=== PATIENT | female | born 1945 | race Caucasian/White ===

== ENCOUNTER → 2017-09-21 18:20 | Outpatient (CLI) | payer OTHER | END | disposition home or self-care (01) | LOC: D.MAMMO 09:30 | DX: Z12.31 Encounter for screening mammogram for malignant neoplasm of breast (principal) ==

== ENCOUNTER → 2018-04-25 09:38 | Outpatient (CLI) | payer OTHER | END | disposition home or self-care (01) | LOC: D.HCCARDIO 09:38 | PROVIDERS: ATTEND Internal Medicine Cardiovascular Disease | DX: R00.2 Palpitations (principal) ==

== ENCOUNTER → 2019-06-27 10:16 | Outpatient (CLI) | payer OTHER | END | disposition home or self-care (01) | LOC: D.HCCECHO 10:16 | PROVIDERS: ATTEND Internal Medicine Cardiovascular Disease | DX: I07.1 Rheumatic tricuspid insufficiency (principal); I34.0 Nonrheumatic mitral (valve) insufficiency; I10 Essential (primary) hypertension; I48.91 Unspecified atrial fibrillation ==

== ENCOUNTER → 2019-08-08 10:01 | Outpatient (CLI) | payer OTHER | END | disposition home or self-care (01) | LOC: D.HCCARDIO 10:01 | PROVIDERS: ATTEND Internal Medicine Cardiovascular Disease | DX: I20.9 Angina pectoris, unspecified (principal) ==

== ENCOUNTER 2019-08-20 06:22 | Outpatient (CLI) | payer OTHER ==
[~2019-08-20] VITALS: Ht 177.8 cm; Wt 77.8 kg
--- NOTE | ~2019-08-20 | HEMODYNAMI ---
PATIENT:SYLVIA PALACIOS MEDICAL RECORD: [id number] : 49 LOCATION:[facility] ADMISSION DATE: 08/20/19 Generatedon:08/20/20198:24 Patient name: SYLVIA PALACIOS Patient #: [id number] N: [id number] : 1945 Date of study: 08/20/2019 Page: Of Hemodynamic Procedure Report Patient Data Patient Demographics Procedure consent was obtained First Name: SYLVIA Gender: Female Last Name: PHILIP : 1945 Patient #: [id number] Age: 74 year(s) Race: SSN: [id number] Additional ID: [id number] Contact details [address]: [address] [place] [address] ln State: [place] City: [place] Zip code: [address] Past Medical History Performed procedures and imaging results Date Procedure Procedure Results Comments 08/08/2019 Stress testing Positive->Intermediate with SPECT MPI risk Admission Admission Data Admission Date: 08/20/2019 Admission Time: 6:22 Arrival Date: 08/20/2019 Arrival Time: 8:00 Admit Source: Other Insurance Payor: Private health insurance [facility] #: [id number] Height (in.): 69.69 BSA: 1.94 (m2) Height (cm.): 177 BMI: 24.58 (kg/m2) Weight (lbs.): 169.76 Weight (kg.): 77 Lab Results Lab Result Date: 08/20/2019 Lab Result Time: 0:00 Biochemistry Name Units Result Min Max BUN mg/dl 17 --(---*)-- 7 18 Creatinine mg/dl 0.9 --(-*--)-- 0.6 1.3 eGFR ml/min 64.49077 *-(----)-- 90 120 NONAFRICAN CBC Name Units Result Min Max Hematocrit % 37.8 *-(----)-- 42 54 Hemoglobin g/dl 12.3 *-(----)-- 13.5 17.5 Procedure Procedure Types Cath Procedure Diagnostic Procedure C [facility] w/Coronaries Sedation Charges Moderate Sedation up to 15 minutes Procedure Description Procedure Date Procedure Date: 08/20/2019 Procedure Start Time: 8:07 Procedure End Time: 8:21 Procedure Staff Name Function Chaya Curtisen RT Monitor Marcela Riddle RN Nurse Acosta Easton MD Performing Physician Keturah Chong RT Scrub Procedure Data Cath Procedure Fluoroscopy Diagnostic fluoroscopy Total fluoroscopy Time: 2.6 time: 2.6 min min Diagnostic fluoroscopy Total fluoroscopy dose: 143 dose: 143 mGy mGy Contrast Material Contrast Material Type Amount (ml) Isovue 300 48 Entry Location Entry Primary Successful Side Size Upsize Upsize Entry Closure [place] ccessful Closure Location (Fr) 1 (Fr) 2 (Fr) Remarks Device Remarks Radial Right 6 Fr Mechanical artery Short Compression Estimated blood loss: 5 ml Diagnostic catheters Device Type Used For End Catheter Placement DIAGNOSTIC [place] 110cm 5 Multi-vessel Fr catheter ([id number]) Angiography DIAGNOSTIC AR1 MOD 5Fr Right Coronary catheter ([id number]) Angiography Procedure Complications No complications Procedure Medications Medication Administration Route Dosage Oxygen etCO2 Nasal cannula 2 l/min Lidocaine 2% added to field 20 Heparin Flush Bag added to field 2 bags (1000units/500ml NS) 0.9% NaCl I.V. 100 ml/hr Versed I.V. 1 mg Fentanyl I.V. 50 mcg Radial Cocktail I.A. 1 syringe (Verapamil 2mg/Nitro 400mcg/Heparin 1500units) Versed I.V. 1 mg Fentanyl I.V. 50 mcg Hemodynamics Rest BSA: 1.94 (m2) HGB: 12.3 (g/dl) O2 Consumption: Estimated: 160.21 (ml/min) O2 Co nsumption indexed: Estimated:82.58 (ml/min/m) Heart Rate: 46 (bpm) Pressure Samples Time Site Value (mmHg) Purpose Heart Use Rate(bpm) 8:12 LV 107/5,11 Snapshot 46 Gradients Valve Time Site Site Mean SEP/DFP Peak To Heart Use 1 2 (mmHg) (sec/min) Peak Rate (mmHg) (bpm) Aortic 8:13 LV AO 45 Snapshots Pre Cath Intra NCS Post Cath Vital Signs Time Heart Resp SPO2 etCO2 NIBP (mmHg) Rhythm Pain Sedation Rate (ipm) (%) (mmHg) Status Level (bpm) 7:53:08 48 14 96 0 166/97(146) SB (Missing) 10(A) 7:57:26 46 23 98 0 168/93(144) SB (Missing) 10(A) 8:01:46 47 11 98 35.9 153/83(128) SB (Missing) 10(A) 8:06:06 44 12 95 38.9 118/70(82) SB (Missing) 10(A) 8:10:14 43 13 96 39.6 119/66(97) SB (Missing) 9(A) 8:14:28 43 15 93 20.2 95/54(78) SB (Missing) 9(A) 8:18:30 44 15 94 29.9 104/61(77) SB (Missing) 10(A) Medications Time Medication Route Dose Verified Delivered Reason Notes Effectiveness by by 8:02:03 Oxygen etCO2 2 l/min Acosta Buffie used for Nasal Rustam Riddle RN procedure cannula 8:02:10 Lidocaine 2% added 20ml Acosta Acosta for local to vial Rustam Easton MD anesthetic field 8:02:18 Heparin Flush added 2 bags Acosta Acosta used for Bag to Rustam Easton MD procedure (1000units/500ml field NS) 8:02:29 0.9% NaCl I.V. 100 Acosta Buffie Per ml/hr Rustam Riddle RN physician 8:03:52 Versed I.V. 1 mg Acosta Buffie for sedation Rustam Riddle RN 8:03:58 Fentanyl I.V. 50 mcg Acosta Buffie for sedation Rustam Riddle RN 8:10:24 Radial Cocktail I.A. 1 Acosta Acosta for (Verapamil syringe Rustam Easton MD vasodilation 2mg/Nitro 400mcg/Hepari 8:10:28 Versed I.V. 1 mg Acosta Buffie for sedation Rustam Riddle RN 8:10:33 Fentanyl I.V. 50 mcg Acosta Buffie for sedation Rustam Riddle RN Procedure Log Time Note 7:12:07 Diagnostic Cath Status : Elective 7:15:16 Admit Source: Other 7:15:23 ACC Patient presents with Stable Angina CCS Anginal Class 2--Slight limitation of ordinary activity. 7:15:28 Procedure Status Elective Heart Cath (OP). 7:15:30 Time tracking: Regular hours (M-F 7:00 - 5:00) 7:15:34 Plan of Care:Hemodynamics will remain stable., Cardiac rhythm will remain stable., Comfort level will be maintained., Respiratory function will remain adequate., Patient/ family verbilizes understanding of procedure., Procedure tolerated without complication., Recovers from procedure without complications.. 7:15:46 H&P Date Dictated: 07/24/2019 Within 30 days and on chart.. 7:16:04 Stress Test: yes; abnormal inferior and apical 7:16:24 Sharps counted by scrub and verified by R.N. 7:16:24 Alarms reviewed by R. N. 7:28:36 Lab Result : Hematocrit 37.8 % 7:28:36 Lab Result : Hemoglobin 12.3 g/dl 7:35:54 Lab Result : eGFR NONAFRICAN 64.18369 ml/min 7:35:54 Lab Result : Creatinine 0.9 mg/dl 7:35:54 Lab Result : BUN 17 mg/dl 7:37:49 Risk of Mortality: 0.1 7:37:52 Risk of blood transfusion: 0.1 7:37:54 Risk of DRAKE: 1.2 7:41:24 Keturah Chong RT(R) sent for patient. Start room use. 7:45:37 Patient received from Pre/Post Procedure Room to CCL 3 Alert and oriented. Tansferred to table in Supine position. 7:45:40 Signed procedure consent form obtained from patient. 7:45:41 ECG and BP/O2 sat monitors applied to patient. 7:45:41 Correct patient and procedure confirmed by team. 7:45:41 Warm blankets applied, and sandra hugger turned on for patient comfort. 7:48:35 Vital chart was started 7:48:36 Baseline sample Acquired. 7:49:26 Arrival Date: 08/20/2019 8:00:00 AM 7:49:45 Insurance Payor : Private health insurance 7:49:47 Patient Height : 69.69 inches 7:49:50 Patient Weight : 169.76 lbs 7:50:38 Pre-op teaching completed and patient verbalized understanding. 7:50:38 Pre-procedure instructions explained to patient. 7:50:40 Family in patients room. 7:50:41 Patient NPO since Midnight. 7:50:48 Is the patient allergic to Iodine/contrast media? No. 7:50:49 Was the patient premedicated? Yes 7:53:41 Is patient on blood thinner?No 7:55:24 patient states has not had her xarelto in two weeks 7:55:26 Patient diabetic? No. 7:55:29 Previous problem with sedation/anesthesia? No ? 7:55:31 Snore? No 7:55:32 Sleep apnea? No 7:55:33 Deviated septum? No 7:55:34 Opens mouth fully? Yes 7:55:35 Sticks out tongue? Yes 7:55:36 Airway obstruction? No ? 7:55:39 Dentures? No ? 7:55:43 Pre procedure: right dorsailis pedis pulse 2+ Normal; easily identifiable; not easily obliterated 7:55:45 Pre procedure: left dorsailis pedis pulse 2+ Normal; easily identifiable; not easily obliterated 7:55:47 Patient pain scale 0/10 ?. 7:55:53 IV patent on arrival in left forearm with 0.9% NaCl at O. 7:56:05 Lab results completed and on chart. 7:56:16 --------ALL STOP TIME OUT------ 7:56:16 Physician arrived 7:56:17 Final Timeout: patient, procedure, and site verified with staff and physician. All members of the team are in agreement. 7:56:22 Right Radial & Right Groin site verified by team. 7:56:26 Fire Safety Assessment: A--An alcohol-based skin anteseptic being used preoperatively., C--Open oxygen or nitrous oxide is being used., D--An ESU, laser, or fiber-optic light is being used. 7:56:28 Physical assessment completed. ASA score P 2 - A patient with mild systemic disease as per Acosta Easton MD. 7:56:43 2) 60-89 Mildly reduced kidney function, and other findings (as for stage 1) point to kidney disease. 7:57:07 Maximum allowable contrast dose (3.7 X eGFR X 0.75)180 ml. 7:57:12 Sedation plan: IV Moderate Sedation Medication:Versed, Fentanyl 7:57:18 Use device set Radial Dx or PCI 7:57:19 ACIST Syringe (71370) opened to sterile field. 7:57:20 ACIST Hand Control (84980) opened to sterile field. 7:57:20 Bag Decanter (2002S) opened to sterile field. 7:57:20 Medline Cath Pack ([id number]) opened to sterile field. 7:57:21 Tegaderm 4 x 4 (1626W) opened to sterile field. 7:57:21 ACIST Manifold (17333) opened to sterile field. 7:57:22 MBrace Wrist Support ([id number]) opened to sterile field. 7:57:23 NEEDLE Cook 21G 4cm Radial (F21513) opened to sterile field. 7:57:24 SHEATH 6FR RAIN (5636573) opened to sterile field. 7:57:25 EMERALD Guide Wire (442-979) opened to sterile field. 8:01:21 Baseline sample Acquired. 8:01:28 Rhythm: sinus bradycardia 8:02:03 Oxygen 2 l/min etCO2 Nasal cannula was administered by Marcela Riddle RN; used for procedure; Verbal order read back and verified. 8:02:10 Lidocaine 2% 20ml vial added to field was administered by Acosta Easton MD; for local anesthetic; Verbal order read back and verified. 8:02:18 Heparin Flush Bag (1000units/500ml NS) 2 bags added to field was administered by Acosta Easton MD; used for procedure; Verbal order read back and verified. 8:02:29 0.9% NaCl 100 ml/hr I.V. was administered by Marcela Riddle RN; Per physician; Verbal order read back and verified. 8:03:52 Versed 1 mg I.V. was administered by Marcela Riddle RN; for sedation; Verbal order read back and verified. 8:03:58 Fentanyl 50 mcg I.V. was administered by Marcela Riddle RN; for sedation; Verbal order read back and verified. 8:04:48 Full Disclosure recording started 8:04:48 Procedure started. 8:07:15 Local anesthetic to right radial artery with Lidocaine 2% by Acosta Easton MD.INITIAL ACCESS ONLY 8:09:46 A 6 Fr Short sheath was inserted into the Right Radial artery 8:10:21 A DIAGNOSTIC [place] 110cm 5 Fr catheter ([id number]) was advanced over the wire and used for Multi-vessel Angiography. 8:10:24 Radial Cocktail (Verapamil 2mg/Nitro 400mcg/Heparin 1500units) 1 syringe I.A. was administered by Acosta Easton MD; for vasodilation; Verbal order read back and verified. 8:10:28 Versed 1 mg I.V. was administered by Marcela Riddle RN; for sedation; Verbal order read back and verified. 8:10:33 Fentanyl 50 mcg I.V. was administered by Marcela Riddle RN; for sedation; Verbal order read back and verified. 8:12:23 LV hemodynamics recorded. 8:12:24 LV gram done using BLACKMAN 8:12:27 Injector settings: Ml/sec: 5, Volume: 15, 8:12:50 EF : 50 % 8:13:41 LCA angiography performed. 8:13:44 Injector settings: Ml/sec: 3, Volume: 6, 8:16:02 A DIAGNOSTIC AR1 MOD 5Fr catheter ([id number]) was advanced over the wire and used for Right Coronary Angiography. 8:18:30 RCA angiography performed. 8:18:32 Injector settings: Ml/sec: 3, Volume: 6, 8:19:14 Catheter removed. 8:19:17 ZEPHYR REGULAR TR BAND (377451) opened to sterile field. 8:19:28 Sheath removed intact; hemostasis achieved with Mechanical Compression to the Right Radial artery. 8:19:29 [place] band inflated with 12cc of air. 8:19:40 Procedure ended.(Physican Out) 8:20:09 Fluoroscopy time 02.60 minutes. 8:20:14 Fluoroscopy dose: 143 mGy 8:20:14 Flurop Dose total: 143 8:20:33 Dose Area Product 938.31 mGy/cm. 8:20:36 Contrast amount:Isovue 300 48ml. 8:20:38 Maximum allowable dose exceeded? No. 8:20:39 Sharps counted by scrub and verified by R.N. 8:20:42 Insertion/operative site no bleeding no hematoma. 8:20:45 Post right radial artery:stable 8:20:47 Post Procedure Pulses reassessed and unchanged 8:20:50 Post procedure rhythm: unchanged. 8:20:53 Estimated blood loss: 5 ml 8:20:55 Patient needs reinforcement of post procedure teaching. 8:20:55 Post procedure instruction explained to patient.Patient verbalizes understanding. 8:21:05 Procedure type changed to Cath procedure, Diagnostic procedure, LHC, [facility] w/Coronaries, Sedation Charges, Moderate Sedation up to 15 minutes 8:21:25 Procedure and supply charges have been captured, reviewed, submitted and are correct. 8:21:29 Procedure Complication : No complications 8:21:32 Vital chart was stopped 8:21:36 [facility] Findings: mild to moderate CAD (<70%) 8:21:38 See physician's report for complete and final results. 8:21:38 Operative report dictated upon procedure completion. 8:21:42 Report given to Pre/Post Procedure Room. 8:21:47 Patient transfered to Pre/Post Procedure Room with Stretcher. 8:21:50 Full Disclosure recording stopped 8:21:50 Procedure ended. 8:21:54 End room use (Document Last) 8:22:28 End room use (Document Last) 8:23:02 End room use (Document Last) Device Usage Item Name Manufacture Quantity Catalog Hospital Part Current Minima l Lot# / Number Charge Number Stock Stock Serial# Code ACIST Acist 1 69552 072553 554152 012345 20 Syringe Medical (66848) Systems Inc Medline Medline 1 [id number] 557600 69484 514471 5 Cath Pack ([id number]) Bag Microtek 1 2001S 786410 07951 717496 5 Decanter Medical Inc. () ACIST Hand Acist 1 84991 859633 364119 167888 5 Control Medical (28937) Systems Inc ACIST Acist 1 54062 549956 610122 479612 5 Manifold Medical (44613) Systems Inc Tegaderm 4 3M 1 1626W 303352 141998 973289 5 x 4 (1626W) MBrace Advanced 1 140-0250-00 045624 36586 288927 5 Wrist Vascular Support Dynamics ([id number]) NEEDLE Cook Cook Medical 1 I94515 911274 987761 914696 5 21G 4cm Radial (F66386) SHEATH 6FR Cardinal 1 7266378 607375 9819490 949583 5 [facility] (4206595) EMERALD Cardinal 1 961-455 683548 864799 537761 5 Guide [facility] (793-796) DIAGNOSTIC Terumo 1 47-2009 643916 853124 821727 5 [place] 110cm 5 Fr catheter (288942) DIAGNOSTIC Cardinal 1 [id number] 156405 169385 425869 15 AR1 MOD 5Fr Health catheter (002964M) ZEPHYR Cardinal 1 236306 327985 2418928 439358 5 REGULAR TR Health BAND (166119) Signature Audit [place] Stage Time Signature Unsigned Intra-Procedure 08/20/2019 Chaya Fair 8:22:28 AM RT(R) Intra-Procedure 08/20/2019 Marcela Riddle RN 8:23:02 AM Intra-Procedure 08/20/2019 Acosta Easton MD 8:24:32 AM [place] [id number] [place] [id number]
[2019-08-20] MEDS ORDERED: BETAPACE 80 MG80 MG PO (06:49)
[2019-08-20] MEDS ORDERED: DILTIAZEM 24HR120 M3 PO (06:50)
[2019-08-20 07:08] VITALS: BP 168/89; Ht 177.8 cm; Wt 77.8 kg
[2019-08-20 07:13] LABS: BASOPHILS 0.6 % (0-2); EOSINOPHILS 1.8 % (0-7); HEMATOCRIT 37.8 % (36.0-48.0); HEMOGLOBIN 12.3 g/dL (12-16); LYMPHOCYTES 31.9 % (15-50); MCH 30.5 pg (26.0-34.0); MCHC 32.5 g/dL (31.0-37.0); MCV 93.8 fL (80.0-100.0); MEAN PLATELET VOLUME 9.5 fL (7.4-10.4); MONOCYTES 8.4 % (2-11); NEUTROPHILS 57.3 % (40-80); PLATELET COUNT 240 10x3/uL (130-400); RBC 4.03 10x6/uL (4.00-5.40); RDW 12.7 % (11.5-14.5); WBC 5.5 10x3/uL (4.8-10.8)
[2019-08-20 07:29] LABS: ANION GAP 12.3 mmol/L (8-16); CALCIUM 8.8 mg/dL (8.5-10.1); CARBON DIOXIDE 26.2 mmol/L (21.0-32.0); CHOL - HDL RATIO 3.2 ratio (2.3-4.1); CREATININE - SERUM 0.9 mg/dL (0.6-1.3); POTASSIUM - SERUM 4.5 mmol/L (3.5-5.1)
--- NOTE | 2019-08-20 08:35 | NUR ---
PT REC'D TO ROOM 12 VIA STRETCHER FROM PLATING INSPECTOR. MONITORS ESTAB. AT BS. SEE SENIOR QUALITY CONTROL INSPECTOR. ALARMS ON AND C/L IN REACH.
--- NOTE | 2019-08-20 08:50 | NUR ---
R WRIST SITE C/D/I, NO S/S BLEEDING OR SWELLING. PULSES PALP. VSS. AT BS. ALARMS ON AND C/L IN REACH.
--- NOTE | 2019-08-20 09:20 | NUR ---
R WRIST SITE C/D/I, NO S/S BLEEDING OR SWELLING. HAND WARM, PULSES PALP. ALARMS ON AND C/L IN REACH.
--- NOTE | 2019-08-20 09:35 | NUR ---
R WRIST SITE C/D/I, 2 CC AIR REMOVED, NO S/S BLEEDING - WILL CONT CLOSE MONITORING. VSS. PT DENIES NEEDS. C/L IN REACH.
--- NOTE | 2019-08-20 09:50 | NUR ---
TOTAL 5 CC AIR REMOVED FROM Z BAND, NO S/S BLEEDING OR SWELLING.
--- NOTE | 2019-08-20 10:15 | NUR ---
TOTAL 7CC AIR REMOVED FROM Z BAND, NO S/S BLEEDING OR SWELLING. PT SITTING UP IN BED. EATING CRACKERS, WATER PROVIDED. AT BS.
--- NOTE | 2019-08-20 10:30 | NUR ---
ALL AIR REMOVED FROM Z BAND, NO S/S BLEEDING OR HEMATOMA. VSS. C/L IN REACH.
--- NOTE | 2019-08-20 10:45 | NUR ---
R WRIST SITE C/D/I, NO S/S BLEEDING. PIV D/C'D INTACT AND PT ALLOWED UP TO GET DRESSED AND GO TO BR INDEPENDENTLY.
--- NOTE | 2019-08-20 11:02 | NUR ---
ALL DISCHARGE INSTRUCTIONS REVIEWED WITH PT AND HER . UNDERSTANDING VERBALIZED. Z BAND OFF AND DSG APPLIED, ARM BOARD IN PLACE.
--- NOTE | 2019-08-20 11:05 | NUR ---
PT D/C'D VIA WC TO PRIVATE VEHICLE WITH ALL PAPER WORK AND BELONGINGS.
== END 2019-08-20 11:05 | disposition home or self-care (01) ==
LOC: D.CATH 06:22
PROVIDERS: ATTEND Internal Medicine Cardiovascular Disease
DX: I20.9 Angina pectoris, unspecified (principal); I48.91 Unspecified atrial fibrillation; I10 Essential (primary) hypertension; R00.2 Palpitations; R06.09 Other forms of dyspnea

== ENCOUNTER 2020-06-16 10:29 | Inpatient (IN) | payer OTHER ==
[~2020-06-16] VITALS: Ht 177.8 cm; Wt 77.3 kg
[~2020-06-16 10:29] MED LIST: BETAPACE 80 MG80 MG PO; DILTIAZEM 24HR120 M3 PO
[2020-06-16] MEDS ORDERED: XARELTO10 MG PO (10:38)
[2020-06-16 11:11] LABS: CALC OSMOLALITY 273 mosm/kg (275-300); CALCIUM 9.1 mg/dL (8.5-10.1); CARBON DIOXIDE 26.4 mmol/L (21.0-32.0); CHLORIDE - SERUM 103 mmol/L (98-107); CREATININE - SERUM 0.7 mg/dL (0.6-1.3); GLUCOSE 89 mg/dL (74-106); POTASSIUM - SERUM 4.3 mmol/L (3.5-5.1); SODIUM 137 mmol/L (136-145); UREA NITROGEN 14 mg/dL (7-18); eGFR NON AFRICAN AMERICAN 87 mL/min (90-120)
[2020-06-16 11:26] LABS: ALBUMIN 3.9 g/dL (3.4-5.0); ALKALINE PHOSPHATASE 71 U/L (30-120); ALT (SGPT) 17 U/L (10-68); BILIRUBIN - TOTAL 0.36 mg/dL (0.2-1.3); CREATINE KINASE 50 UL (21-215); PROTEIN - SERUM 7.2 g/dL (6.4-8.2)
[2020-06-16 11:27] LABS: TROPONIN-I < 0.017 ng/mL (0.000-0.060)
[2020-06-16 11:33] LABS: APTT 28.7 SECONDS (22.8-39.4); INR 1.23 (0.85-1.17); PROTIME 14.3 SECONDS (11.6-15.0)
[2020-06-16 11:57] LABS: BASOPHILS 0.5 % (0-2); EOSINOPHILS 1.6 % (0-7); HEMATOCRIT 32.3 % (36.0-48.0); HEMOGLOBIN 10.4 g/dL (12-16); LYMPHOCYTE ABS# 1.61 10x3/uL (1.18-3.74); LYMPHOCYTES 36.3 % (15-50); MCH 29.3 pg (26.0-34.0); MCHC 32.2 g/dL (31.0-37.0); MEAN PLATELET VOLUME 9.6 fL (7.4-10.4); MONOCYTES 9.7 % (2-11); NEUTROPHIL ABS# 2.31 10x3/uL (1.56-6.13); NEUTROPHILS 51.9 % (40-80); PLATELET COUNT 250 10x3/uL (130-400); RBC 3.55 10x6/uL (4.00-5.40); RDW 13.6 % (11.5-14.5); WBC 4.4 10x3/uL (4.8-10.8)
[2020-06-16 13:49] VITALS: BP 184/91
--- NOTE | 2020-06-16 14:42 | NUR ---
ARRIVED TO FLOOR. ALERT AND ORIENTED.
[2020-06-16] MEDS ORDERED: BENADRYL25 MG PO (14:45)
[2020-06-16 14:50] VITALS: BP 180/79; Ht 177.8 cm; Wt 77.3 kg
[2020-06-16 16:00] VITALS: BP 163/85
--- NOTE | 2020-06-16 17:35 | NUR ---
RESTING IN BED. DENIES ANY NEEDS AT THIS TIME. CALL LIGHT IN REACH.
[2020-06-16 20:00] VITALS: BP 112/67
[2020-06-17] VITALS: BP 139/71
[2020-06-17 04:00] VITALS: BP 161/74
--- NOTE | 2020-06-17 05:10 | NUR ---
I have reviewed this patient and I concur with the Shift Assessment completed by the Licensed Practical Nurse today this shift.
[2020-06-17 06:14] LABS: BASOPHILS 0.3 % (0-2); EOSINOPHILS 2.1 % (0-7); HEMATOCRIT 31.5 % (36.0-48.0); HEMOGLOBIN 10.1 g/dL (12-16); IMMATURE GRANULOCYTES 0.3 % (0-5); MCHC 32.1 g/dL (31.0-37.0); MCV 90.5 fL (80.0-100.0); MEAN PLATELET VOLUME 9.4 fL (7.4-10.4); MONOCYTES 9.4 % (2-11); NEUTROPHIL ABS# 1.89 10x3/uL (1.56-6.13); NEUTROPHILS 48.9 % (40-80); PLATELET COUNT 243 10x3/uL (130-400); RBC 3.48 10x6/uL (4.00-5.40); RDW 13.7 % (11.5-14.5); WBC 3.9 10x3/uL (4.8-10.8)
[2020-06-17 06:29] LABS: ALBUMIN 3.5 g/dL (3.4-5.0); ALKALINE PHOSPHATASE 67 U/L (30-120); ALT (SGPT) 15 U/L (10-68); CALC OSMOLALITY 275 mosm/kg (275-300); CARBON DIOXIDE 26.5 mmol/L (21.0-32.0); CHLORIDE - SERUM 104 mmol/L (98-107); CREATININE - SERUM 0.7 mg/dL (0.6-1.3); GLUCOSE 97 mg/dL (74-106); POTASSIUM - SERUM 4.1 mmol/L (3.5-5.1); PROTEIN - SERUM 6.7 g/dL (6.4-8.2); SODIUM 138 mmol/L (136-145); UREA NITROGEN 13 mg/dL (7-18); eGFR NON AFRICAN AMERICAN 87 mL/min (90-120)
[2020-06-17 08:29] VITALS: BP 156/90
--- NOTE | 2020-06-17 10:22 | NUR ---
PATIENT AAOX4 SITTING HIGH FOWLERS, NO S/S OF DISTRESS, RESP EVEN AND NON LABORED, MEDIACTIONS ADMINISTERED WITH NO COMPLICATIONS, PATIENT STATES SHE FEELS BETTER, NO FURTHER NEEDS AT THIS TIME, JASWANT RAMOS
[2020-06-17] MEDS ORDERED: PROTONIX40 MG PO (11:31)
[2020-06-17] MEDS ORDERED: BETAPACE 120 M120 MG PO (11:31)
== END 2020-06-17 13:03 | disposition home or self-care (01) | DRG 310 ==
LOC: D.ER 10:29 → D.M2 13:48
PROVIDERS: Emergency Medicine; Family Medicine; ADMIT Family Medicine; ATTEND Family Medicine
DX: I48.0 Paroxysmal atrial fibrillation (principal); I48.20 Chronic atrial fibrillation, unspecified; R00.2 Palpitations; M19.90 Unspecified osteoarthritis, unspecified site; I10 Essential (primary) hypertension; Z79.01 Long term (current) use of anticoagulants